=== PATIENT | male | born 1945 | race Caucasian/White ===

== ENCOUNTER 2022-05-20 03:18 | Inpatient (IN) | payer OTHER, MEDICAID ==
[~2022-05-20] VITALS: Ht 165.1 cm; Wt 76.7 kg
[2022-05-20 03:20] VITALS: BP_SYST 117
[2022-05-20 04:23] LABS: BASOPHILS % (AUTO) 0.8 % (0.0-2.0); EOSINOPHILS # (AUTO) 0.1 K/uL (0.0-0.4); EOSINOPHILS % (AUTO) 2.2 % (0.0-4.0); HEMATOCRIT 36.6 % (36-54); HEMOGLOBIN 12.2 g/dL (14.0-18.0); LYMPHOCYTES # (AUTO) 1.4 K/uL (1.0-5.5); LYMPHOCYTES % (AUTO) 32.8 % (20.5-51.5); MEAN CORPUSCULAR HEMOGLOBIN 32 pg (27-31); MEAN CORPUSCULAR HGB CONC 33 % (32-36); MEAN CORPUSCULAR VOLUME 95 fL (79.0-98.0); MONOCYTES # (AUTO) 0.4 K/uL (0.0-1.0); MONOCYTES % (AUTO) 10.6 % (1.7-9.3); NEUTROPHILS # (AUTO) 2.2 K/uL (1.8-7.7); NEUTROPHILS % (AUTO) 53.6 % (40.0-70.0); PLATELET COUNT (AUTO) 161 K/uL (130-430); RED BLOOD CELL COUNT(AUTO) 3.86 MIL/uL (4.2-6.2); RED CELL DISTRIBUTION WIDTH 13.7 % (9.0-15.0); WHITE BLOOD COUNT (AUTO) 4.1 K/uL (4.8-10.8)
[2022-05-20 04:32] LABS: ANION GAP 8 (5-15); CALCIUM 8.9 mg/dL (8.4-11.0); CHLORIDE 109 mmol/L (98-107); CREATININE 1.87 mg/dL (0.55-1.30); GLUCOSE 144 mg/dL (70-99); UREA NITROGEN, BLOOD 28 mg/dL (8-21)
[2022-05-20 04:40] LABS: ALANINE AMINOTRANSFERASE 19 U/L (12-78); ALBUMIN 3.6 g/dL (3.4-4.8); ASPARTATE AMINOTRANSFERASE 12 U/L (10-37); LIPASE 375 U/L (73-393); TOTAL BILIRUBIN 0.4 mg/dL (0.0-1.0)
[2022-05-20] MEDS ORDERED: CLOP75TA32 PO (08:42)
[2022-05-20] MEDS ORDERED: DAPA10TA PO (08:42)
[2022-05-20] MEDS ORDERED: DONE10TA44 PO (08:42)
[2022-05-20] MEDS ORDERED: ASPI-1393 PO (08:42)
[2022-05-20] MEDS ORDERED: SODI650T PO (08:42)
[2022-05-20] MEDS ORDERED: LINA145C PO (08:42)
[2022-05-20] MEDS ORDERED: DULO30CA52 PO (08:42)
[2022-05-20] MEDS ORDERED: FERR325T30 PO (08:42)
[2022-05-20] MEDS ORDERED: IBUP-1970 PO (08:42)
[2022-05-20] MEDS ORDERED: TIMO5DRO15 (08:42)
[2022-05-20] MEDS ORDERED: GLIM4TAB37 PO (08:42)
[2022-05-20] MEDS ORDERED: METO-544 PO (08:42)
[2022-05-20] MEDS ORDERED: SUCR1TAB2 PO (08:42)
[2022-05-20] MEDS ORDERED: ASC500 PO (08:42)
[2022-05-20] MEDS ORDERED: SITA100T11 PO (08:42)
[2022-05-20] MEDS ORDERED: INSU100V9 SUBCUT (08:42)
[2022-05-20] MEDS ORDERED: LOSA50TA28 PO (08:42)
[2022-05-20] MEDS ORDERED: ATOR20TA64 PO (08:42)
[2022-05-20] MEDS ORDERED: LATA2.5D14 EACH EYE (08:42)
[2022-05-20] MEDS ORDERED: DULA1.5P SUBCUT (08:42)
[2022-05-20] MEDS ORDERED: PANT40TA45 PO (08:42)
[2022-05-20] MEDS ORDERED: TAMS0.4C96 PO (08:42)
[2022-05-20] MEDS ORDERED: LOSARTAN POTASSIUM 50 MG TABLET (COZAAR) PO ONE (11:00)
[2022-05-20] MEDS ORDERED: METOPROLOL SUCCINATE 50 MG TAB.SR.24H (TOPROL XL) PO ONE (11:15)
[2022-05-20] MEDS ORDERED: DEXTROSE 50%-WATER 50 ML DISP.SYRIN IVP PRN (11:45)
[2022-05-20] MEDS ORDERED: D5W 1,000 ML IV PRN (11:45)
[2022-05-20] MEDS ORDERED: GLUCOSE (DEXTROSE) ORAL GEL -Adults PO PRN (11:45)
[2022-05-20 11:53] VITALS: BP_SYST 131
[2022-05-20 11:55] VITALS: BP_SYST 138
[2022-05-20] MEDS ORDERED: DULoxetine HCL 30 MG CAPSULE.DR (CYMBALTA) PO ONE (12:00)
[2022-05-20] MEDS ORDERED: ATORVASTATIN 20 MG TABLET PO ONE (12:00)
[2022-05-20] MEDS ORDERED: PANTOPRAZOLE SODIUM 40 MG TAB PO ONE (12:00)
[2022-05-20] MEDS ORDERED: CLOPIDOGREL BISULFATE 75 MG TABLET PO ONE (12:00)
[2022-05-20] MEDS ORDERED: ASPIRIN 81 MG TABLET(ECOTRIN) PO ONE (12:00)
[2022-05-20] MEDS: SODIUM BICARBONATE 650 MG TABLET PO SCH ×2 (13:28→22:02)
[2022-05-20] MEDS: SUCRALFATE 1 GM TABLET PO SCH ×2 (15:35→22:01)
[2022-05-20 19:00] VITALS: BP_SYST 132
[2022-05-20 20:00] VITALS: BP_SYST 132
[2022-05-20] MEDS: DONEPEZIL HCL 5 MG TABLET (ARICEPT) PO SCH (22:01)
[2022-05-20] MEDS: TAMSULOSIN HCL 0.4 MG CAP PO SCH (22:02)
[2022-05-20] MEDS: DULoxetine HCL 30 MG CAPSULE.DR (CYMBALTA) PO SCH (22:02)
[2022-05-20] MEDS: INSULIN LISPRO SLIDING SCALE 100 UNITS/ML, 3 ML VIAL (humaLOG) SUBCUT PRN (22:05)
[2022-05-21] VITALS: BP_SYST 126
[2022-05-21 03:31] LABS: BASOPHILS % (AUTO) 0.7 % (0.0-2.0); EOSINOPHILS # (AUTO) 0.1 K/uL (0.0-0.4); EOSINOPHILS % (AUTO) 1.1 % (0.0-4.0); HEMATOCRIT 34.5 % (36-54); HEMOGLOBIN 11.8 g/dL (14.0-18.0); LYMPHOCYTES # (AUTO) 1.3 K/uL (1.0-5.5); LYMPHOCYTES % (AUTO) 22.4 % (20.5-51.5); MEAN CORPUSCULAR HEMOGLOBIN 32 pg (27-31); MEAN CORPUSCULAR HGB CONC 34 % (32-36); MEAN CORPUSCULAR VOLUME 93 fL (79.0-98.0); MONOCYTES # (AUTO) 0.5 K/uL (0.0-1.0); MONOCYTES % (AUTO) 8.3 % (1.7-9.3); NEUTROPHILS # (AUTO) 3.9 K/uL (1.8-7.7); NEUTROPHILS % (AUTO) 67.5 % (40.0-70.0); PLATELET COUNT (AUTO) 152 K/uL (130-430); RED BLOOD CELL COUNT(AUTO) 3.69 MIL/uL (4.2-6.2); RED CELL DISTRIBUTION WIDTH 13.7 % (9.0-15.0); WHITE BLOOD COUNT (AUTO) 5.8 K/uL (4.8-10.8)
[2022-05-21 03:35] LABS: ANION GAP 9 (5-15); CALCIUM 8.7 mg/dL (8.4-11.0); CHLORIDE 111 mmol/L (98-107); CREATININE 1.63 mg/dL (0.55-1.30); GLUCOSE 117 mg/dL (70-99); UREA NITROGEN, BLOOD 30 mg/dL (8-21)
[2022-05-21 03:44] LABS: ALANINE AMINOTRANSFERASE 18 U/L (12-78); ALBUMIN 3.3 g/dL (3.4-4.8); ASPARTATE AMINOTRANSFERASE 17 U/L (10-37); TOTAL BILIRUBIN 0.7 mg/dL (0.0-1.0)
[2022-05-21 08:17] VITALS: BP_SYST 106
[2022-05-21] MEDS: SODIUM BICARBONATE 650 MG TABLET PO SCH ×3 (09:18→20:59)
[2022-05-21] MEDS: METOPROLOL SUCCINATE 50 MG TAB.SR.24H (TOPROL XL) PO SCH (09:18)
[2022-05-21] MEDS: SUCRALFATE 1 GM TABLET PO SCH ×3 (09:19→20:59)
[2022-05-21] MEDS: ASPIRIN 81 MG TABLET(ECOTRIN) PO SCH (09:19)
[2022-05-21] MEDS: DULoxetine HCL 30 MG CAPSULE.DR (CYMBALTA) PO SCH ×2 (09:19→20:59)
[2022-05-21] MEDS: LOSARTAN POTASSIUM 50 MG TABLET (COZAAR) PO SCH (09:19)
[2022-05-21] MEDS: ATORVASTATIN 20 MG TABLET PO SCH (09:19)
[2022-05-21] MEDS: CLOPIDOGREL BISULFATE 75 MG TABLET PO SCH (09:19)
[2022-05-21] MEDS: LINACLOTIDE 145 MCG PO SCH (09:20)
[2022-05-21] MEDS: TIMOLOL MALEATE 0.5% OPHTHALMIC DROPS 5 ML BOTH EYES SCH (09:20)
[2022-05-21] MEDS: PANTOPRAZOLE SODIUM 40 MG TAB PO SCH (09:25)
[2022-05-21 11:34] VITALS: BP_SYST 104
[2022-05-21] MEDS ORDERED: BISACODYL 5 MG TABLET.DR (DULCOLAX) PO ONE (12:00)
[2022-05-21] MEDS ORDERED: GOLYTELY / COLYTE SOLUTION 4 LITERS PO ONE (13:00)
[2022-05-21] MEDS: INSULIN LISPRO SLIDING SCALE 100 UNITS/ML, 3 ML VIAL (humaLOG) SUBCUT PRN ×2 (13:38→20:58)
[2022-05-21 15:37] VITALS: BP_SYST 133
[2022-05-21 20:00] VITALS: BP_SYST 154
[2022-05-21] MEDS ORDERED: ACETAMINOPHEN 325 MG TABLET PO PRN (20:30)
[2022-05-21] MEDS ORDERED: TEMAZEPAM 7.5 MG CAPSULE PO PRN (20:30)
[2022-05-21] MEDS ORDERED: LATANOPROST 2.5 ML DROPS (XALATAN) EACH EYE SCH (21:00)
[2022-05-21] MEDS: DONEPEZIL HCL 5 MG TABLET (ARICEPT) PO SCH (21:00)
[2022-05-21] MEDS: TAMSULOSIN HCL 0.4 MG CAP PO SCH (21:00)
[2022-05-22 01:25] VITALS: BP_SYST 126
[2022-05-22 07:17] LABS: ANION GAP 9 (5-15); CALCIUM 8.8 mg/dL (8.4-11.0); CHLORIDE 105 mmol/L (98-107); CREATININE 1.42 mg/dL (0.55-1.30); GLUCOSE 136 mg/dL (70-99); UREA NITROGEN, BLOOD 24 mg/dL (8-21)
[2022-05-22 07:22] LABS: PROTHROMBIN TIME 10.7 SECS (9.5-12.5)
[2022-05-22 07:27] LABS: BASOPHILS % (AUTO) 0.5 % (0.0-2.0); EOSINOPHILS % (AUTO) 0.8 % (0.0-4.0); HEMATOCRIT 37.2 % (36-54); HEMOGLOBIN 12.7 g/dL (14.0-18.0); LYMPHOCYTES # (AUTO) 1.2 K/uL (1.0-5.5); MEAN CORPUSCULAR HEMOGLOBIN 32 pg (27-31); MEAN CORPUSCULAR HGB CONC 34 % (32-36); MEAN CORPUSCULAR VOLUME 94 fL (79.0-98.0); MONOCYTES # (AUTO) 0.5 K/uL (0.0-1.0); MONOCYTES % (AUTO) 10.9 % (1.7-9.3); NEUTROPHILS # (AUTO) 2.8 K/uL (1.8-7.7); NEUTROPHILS % (AUTO) 61.8 % (40.0-70.0); PLATELET COUNT (AUTO) 165 K/uL (130-430); RED BLOOD CELL COUNT(AUTO) 3.96 MIL/uL (4.2-6.2); RED CELL DISTRIBUTION WIDTH 13.5 % (9.0-15.0); WHITE BLOOD COUNT (AUTO) 4.6 K/uL (4.8-10.8)
[2022-05-22 08:00] VITALS: BP_SYST 143
[2022-05-22] MEDS: SODIUM BICARBONATE 650 MG TABLET PO SCH ×2 (09:00→16:35)
[2022-05-22] MEDS: LINACLOTIDE 145 MCG PO SCH (09:00)
[2022-05-22] MEDS: METOPROLOL SUCCINATE 50 MG TAB.SR.24H (TOPROL XL) PO SCH (09:00)
[2022-05-22] MEDS: LOSARTAN POTASSIUM 50 MG TABLET (COZAAR) PO SCH (09:00)
[2022-05-22] MEDS: SUCRALFATE 1 GM TABLET PO SCH ×2 (09:00→16:35)
[2022-05-22] MEDS: CLOPIDOGREL BISULFATE 75 MG TABLET PO SCH (09:00)
[2022-05-22] MEDS ORDERED: MEPERIDINE 100 MG INJ. 100 MG/ML VIAL ONE (09:52)
[2022-05-22] MEDS ORDERED: fentaNYL CITRATE/PF 100 MCG/2 ML AMP IVP ONE ×2 (09:54→09:56)
[2022-05-22] MEDS: MIDAZOLAM HCL 5 MG/5 ML VIAL ONE ×3 (09:54→10:20)
[2022-05-22] MEDS: ASPIRIN 81 MG TABLET(ECOTRIN) PO SCH (11:40)
[2022-05-22] MEDS: TIMOLOL MALEATE 0.5% OPHTHALMIC DROPS 5 ML BOTH EYES SCH (11:40)
[2022-05-22] MEDS: DULoxetine HCL 30 MG CAPSULE.DR (CYMBALTA) PO SCH (11:40)
[2022-05-22] MEDS: ATORVASTATIN 20 MG TABLET PO SCH (11:40)
[2022-05-22] MEDS: PANTOPRAZOLE SODIUM 40 MG TAB PO SCH (11:40)
[2022-05-22 12:00] VITALS: BP_SYST 115
[2022-05-22 16:00] VITALS: BP_SYST 134
[2022-05-22 17:42] VITALS: BP_SYST 134
[2022-05-24 20:13] VITALS: BP_SYST 125
== END 2022-05-22 19:00 | disposition home or self-care (01) | DRG 391 ==
LOC: SED 03:18 → STU 06:15
PROVIDERS: ADMIT Internal Medicine; ATTEND Internal Medicine
PROC: 0DBK8ZZ Excision of Ascending Colon, Via Natural or Artificial Opening Endoscopic (ICD-10-PCS; 2022-05-22)
PROC: 0DBL8ZX Excision of Transverse Colon, Via Natural or Artificial Opening Endoscopic, Diagnostic (ICD-10-PCS; 2022-05-22)
PROC: 0DB98ZX Excision of Duodenum, Via Natural or Artificial Opening Endoscopic, Diagnostic (ICD-10-PCS; principal; 2022-05-22 11:00)
PROC: 0DB78ZX Excision of Stomach, Pylorus, Via Natural or Artificial Opening Endoscopic, Diagnostic (ICD-10-PCS; 2022-05-22 11:00)
PROC: 0DBH8ZZ Excision of Cecum, Via Natural or Artificial Opening Endoscopic (ICD-10-PCS; 2022-05-22 11:00)
DX: K21.9 Gastro-esophageal reflux disease without esophagitis (principal); N17.0 Acute kidney failure with tubular necrosis; K29.70 Gastritis, unspecified, without bleeding; K44.9 Diaphragmatic hernia without obstruction or gangrene; K63.5 Polyp of colon; K64.8 Other hemorrhoids; E78.5 Hyperlipidemia, unspecified; E11.51 Type 2 diabetes mellitus with diabetic peripheral angiopathy without gangrene; I25.10 Atherosclerotic heart disease of native coronary artery without angina pectoris; M19.90 Unspecified osteoarthritis, unspecified site; F03.A0 Unspecified dementia, mild, without behavioral disturbance, psychotic disturbance, mood disturbance, and anxiety; E11.42 Type 2 diabetes mellitus with diabetic polyneuropathy; D64.9 Anemia, unspecified; I12.9 Hypertensive chronic kidney disease with stage 1 through stage 4 chronic kidney disease, or unspecified chronic kidney disease; E11.22 Type 2 diabetes mellitus with diabetic chronic kidney disease; N18.32 Chronic kidney disease, stage 3b; Z20.822 Contact with and (suspected) exposure to COVID-19; F32.A Depression, unspecified; Z79.1 Long term (current) use of non-steroidal anti-inflammatories (NSAID); Z79.4 Long term (current) use of insulin; Z79.899 Other long term (current) drug therapy
CPT/HCPCS: 36415; 43239; 45380; 45385; 71045; 76770; 80048; 80053; 82962; 83036; 83690; 83880; 84484; 85025; 85610-TC; 85730-TC; 87081; 88305; 88312; 88313; 93005; 93306; 99285; G0378; J2175; J2250; J3010

== ENCOUNTER 2022-07-30 09:46 | Emergency (ER) | payer OTHER, MEDICAID ==
[~2022-07-30] VITALS: Ht 157.5 cm; Wt 81.6 kg
[~2022-07-30 09:46] MED LIST: ASC500 PO; ASPI-1393 PO; ATOR20TA64 PO; CLOP75TA32 PO; DAPA10TA PO; DONE10TA44 PO; DULA1.5P SUBCUT; DULO30CA52 PO; FERR325T30 PO; GLIM4TAB37 PO; IBUP-1970 PO; INSU100V9 SUBCUT; LATA2.5D14 EACH EYE; LINA145C PO; LOSA50TA28 PO; METO-544 PO; PANT40TA45 PO; SITA100T11 PO; SODI650T PO; SUCR1TAB2 PO; TAMS0.4C96 PO; TIMO5DRO15
[2022-07-30 09:55] VITALS: BP_SYST 93
--- NOTE | 2022-07-30 10:00 | NUR ---
Patient triaged and placed in waiting room. VSS and patient appears in no acute distress at this time. Accompanied by , awaiting available bed, and MD notified of need for MSE.
--- NOTE | 2022-07-30 14:00 | NUR ---
Dr Ortiz evaluating patient in the triage room
[2022-07-30 15:52] LABS: EOSINOPHILS # (AUTO) 0.1 K/uL (0.0-0.4); EOSINOPHILS % (AUTO) 1.9 % (0.0-4.0); HEMATOCRIT 33.9 % (36-54); HEMOGLOBIN 11.2 g/dL (14.0-18.0); LYMPHOCYTES # (AUTO) 1.6 K/uL (1.0-5.5); LYMPHOCYTES % (AUTO) 30.1 % (20.5-51.5); MEAN CORPUSCULAR HEMOGLOBIN 32 pg (27-31); MEAN CORPUSCULAR HGB CONC 33 % (32-36); MEAN CORPUSCULAR VOLUME 96 fL (79.0-98.0); MONOCYTES # (AUTO) 0.4 K/uL (0.0-1.0); MONOCYTES % (AUTO) 8.1 % (1.7-9.3); NEUTROPHILS % (AUTO) 58.9 % (40.0-70.0); PLATELET COUNT (AUTO) 213 K/uL (130-430); RED BLOOD CELL COUNT(AUTO) 3.54 MIL/uL (4.2-6.2); RED CELL DISTRIBUTION WIDTH 13.7 % (9.0-15.0); WHITE BLOOD COUNT (AUTO) 5.1 K/uL (4.8-10.8)
[2022-07-30 16:13] LABS: ANION GAP 5 (5-15); CALCIUM 9.1 mg/dL (8.4-11.0); CHLORIDE 103 mmol/L (98-107); CREATININE 1.97 mg/dL (0.55-1.30); GLUCOSE 258 mg/dL (70-99); UREA NITROGEN, BLOOD 30 mg/dL (8-21)
[2022-07-30 16:16] LABS: ALANINE AMINOTRANSFERASE 23 U/L (12-78); ALBUMIN 3.4 g/dL (3.4-4.8); ASPARTATE AMINOTRANSFERASE 16 U/L (10-37); C-REACTIVE PROTEIN QUANT 0.6 mg/dL (0-0.5); TOTAL BILIRUBIN 0.6 mg/dL (0.0-1.0)
[2022-07-30] MEDS ORDERED: CLIN-142 PO (18:46)
[2022-07-30 19:10] VITALS: BP_SYST 135
--- NOTE | 2022-07-30 19:30 | NUR ---
Patient given written and verbal discharge instructions and verbalizes understanding. ER MD discussed with patient the results and treatment provided. Patient in stable condition. ID arm band removed. . Patient educated on pain management and to follow up with PMD. Pain Scale 2/10. Opportunity for questions provided and answered. Medication side effect fact sheet provided.
[2022-07-31] MEDS ORDERED: CEPH-548 PO (09:49)
== END 2022-07-30 19:10 | disposition home or self-care (01) ==
LOC: SED 09:46
DX: E11.621 Type 2 diabetes mellitus with foot ulcer (principal); E78.5 Hyperlipidemia, unspecified; E11.9 Type 2 diabetes mellitus without complications; I10 Essential (primary) hypertension; Z79.899 Other long term (current) drug therapy
CPT/HCPCS: 36415; 80053; 83605; 85025; 86140; 99284

== ENCOUNTER 2022-07-31 09:31 | Emergency (ER) | payer OTHER, MEDICAID ==
[~2022-07-31] VITALS: Ht 162.6 cm; Wt 81.6 kg
[~2022-07-31 09:31] MED LIST changes: +CLIN-142 PO
[2022-07-31 09:35] VITALS: BP_SYST 125
--- NOTE | 2022-07-31 09:46 | NUR ---
PT BIB AWAKE AND ALERT AOX4. PT HERE TO GET LAB REPORTS FROM HIS VISIT TO THE ER YESTERDAY, CONCERNING HIS DIABETIC R FOOT INFECTION. PT DENIES PAIN. NO VISBILE BLOOD OR DRAINAGE. VSS
--- NOTE | 2022-07-31 09:48 | NUR ---
MD DR LARSON AT BEDSIDE
[2022-07-31] MEDS ORDERED: CEPH-548 PO (09:49)
[2022-07-31 12:10] VITALS: BP_SYST 125
--- NOTE | 2022-07-31 12:11 | NUR ---
Patient given written and verbal discharge instructions and verbalizes understanding. ER MD DR LARSON discussed with patient the results and treatment provided. Patient in stable condition. ID arm band removed. Rx of CEPHALEXIN given. Patient educated on pain management and to follow up with PMD. Pain Scale 0/10. Opportunity for questions provided and answered. Medication side effect fact sheet provided.
== END 2022-07-31 12:11 | disposition home or self-care (01) ==
LOC: SED 09:31
DX: E11.621 Type 2 diabetes mellitus with foot ulcer (principal); E78.5 Hyperlipidemia, unspecified; I10 Essential (primary) hypertension; Z79.4 Long term (current) use of insulin; Z79.899 Other long term (current) drug therapy
CPT/HCPCS: 99283

== ENCOUNTER 2022-11-08 02:52 | Emergency (ER) | payer OTHER, MEDICAID ==
[~2022-11-08] VITALS: Ht 157.5 cm; Wt 82.6 kg
[2022-11-08 02:52] VITALS: BP_SYST 120
[~2022-11-08 02:52] MED LIST changes: +CEPH-548 PO
[2022-11-08] MEDS ORDERED: LIDOCAINE 2%, 20 ML MDV INJ ONE (03:15)
[2022-11-08] MEDS ORDERED: SULFAMETHOXAZOLE/TRIMETHOPR DS 1 TABLET PO ONE (03:15)
[2022-11-08] MEDS ORDERED: cephALEXin 500 MG CAPSULE PO ONE (03:15)
[2022-11-08] MEDS ORDERED: CEPH-548 PO (03:34)
[2022-11-08] MEDS ORDERED: SULF1TAB48 PO (03:34)
[2022-11-08 03:50] VITALS: BP_SYST 120
== END 2022-11-08 03:50 | disposition home or self-care (01) ==
LOC: SED 02:52
DX: L02.511 Cutaneous abscess of right hand (principal); E11.9 Type 2 diabetes mellitus without complications; I10 Essential (primary) hypertension; E78.5 Hyperlipidemia, unspecified; Z79.899 Other long term (current) drug therapy
CPT/HCPCS: 99283

== ENCOUNTER 2023-04-01 15:20 | Inpatient (IN) | payer OTHER, MEDICAID ==
[~2023-04-01] VITALS: Ht 157.5 cm; Wt 82.3 kg
[~2023-04-01 15:20] MED LIST changes: +SULF1TAB48 PO; -TIMO5DRO15; +TIMO5DRO18
[2023-04-01 15:41] VITALS: BP_SYST 123; PULSE 88; RESP 18; TEMP 97.8; O2SAT 98
[2023-04-01 17:04] LABS: BASOPHILS % (AUTO) 0.4 % (0.0-2.0); EOSINOPHILS % (AUTO) 0.2 % (0.0-4.0); HEMATOCRIT 37.5 % (36-54); HEMOGLOBIN 11.9 g/dL (14.0-18.0); LYMPHOCYTES # (AUTO) 0.9 K/uL (1.0-5.5); LYMPHOCYTES % (AUTO) 9.6 % (20.5-51.5); MEAN CORPUSCULAR HEMOGLOBIN 30 pg (27-31); MEAN CORPUSCULAR HGB CONC 32 % (32-36); MEAN CORPUSCULAR VOLUME 95 fL (79.0-98.0); MONOCYTES # (AUTO) 0.7 K/uL (0.0-1.0); MONOCYTES % (AUTO) 7.3 % (1.7-9.3); NEUTROPHILS # (AUTO) 7.8 K/uL (1.8-7.7); NEUTROPHILS % (AUTO) 82.5 % (40.0-70.0); PLATELET COUNT (AUTO) 179 K/uL (130-430); RED BLOOD CELL COUNT(AUTO) 3.96 MIL/uL (4.2-6.2); RED CELL DISTRIBUTION WIDTH 14.2 % (9.0-15.0); WHITE BLOOD COUNT (AUTO) 9.5 K/uL (4.8-10.8)
[2023-04-01 17:52] LABS: ANION GAP 6 (5-15); CARBON DIOXIDE 23 mmol/L (23-29); CHLORIDE 99 mmol/L (98-107); POTASSIUM 4.2 mmol/L (3.5-5.1); SODIUM SERUM 128 mmol/L (136-145)
[2023-04-01 17:53] LABS: ALANINE AMINOTRANSFERASE 18 U/L (12-78); ALBUMIN 3.4 g/dL (3.4-4.8); ASPARTATE AMINOTRANSFERASE 13 U/L (10-37); CALCIUM 9.2 mg/dL (8.4-11.0); CREATININE 1.81 mg/dL (0.55-1.30); GLUCOSE 309 mg/dL (74-106); TOTAL BILIRUBIN 0.6 mg/dL (0.0-1.0); TOTAL PROTEIN, SERUM 7.9 g/dL (6.4-8.3)
[2023-04-01 17:58] LABS: UREA NITROGEN, BLOOD 32 mg/dL (8-21)
[2023-04-01] MEDS ORDERED: PIPERACILLIN/TAZO 3.375 GM in NS 50 ML IV ONE (18:30)
[2023-04-01] MEDS ORDERED: VANCOMYCIN HCL 1,000 MG in NS 250 ML IV ONE (19:00)
[2023-04-01] MEDS ORDERED: VANCOMYCIN HCL 1000 MG/VIAL IV ONE (19:55)
[2023-04-01] MEDS ORDERED: PIPERACILLIN/TAZOBACTAM 3.375 GM/VIAL (ZOSYN) IV ONE (19:56)
[2023-04-02 01:10] VITALS: BP_SYST 128; PULSE 98; RESP 17; TEMP 97.7; O2SAT 96
[2023-04-02 05:41] LABS: BASOPHILS % (AUTO) 0.3 % (0.0-2.0); HEMATOCRIT 35.7 % (36-54); HEMOGLOBIN 11.4 g/dL (14.0-18.0); LYMPHOCYTES # (AUTO) 1.4 K/uL (1.0-5.5); LYMPHOCYTES % (AUTO) 19.2 % (20.5-51.5); MEAN CORPUSCULAR HEMOGLOBIN 30 pg (27-31); MEAN CORPUSCULAR HGB CONC 32 % (32-36); MEAN CORPUSCULAR VOLUME 93 fL (79.0-98.0); MONOCYTES # (AUTO) 0.7 K/uL (0.0-1.0); MONOCYTES % (AUTO) 9.5 % (1.7-9.3); NEUTROPHILS # (AUTO) 5.2 K/uL (1.8-7.7); PLATELET COUNT (AUTO) 175 K/uL (130-430); RED BLOOD CELL COUNT(AUTO) 3.82 MIL/uL (4.2-6.2); RED CELL DISTRIBUTION WIDTH 13.8 % (9.0-15.0); WHITE BLOOD COUNT (AUTO) 7.3 K/uL (4.8-10.8)
[2023-04-02 06:27] LABS: ALANINE AMINOTRANSFERASE 16 U/L (12-78); ANION GAP 12 (5-15); ASPARTATE AMINOTRANSFERASE 12 U/L (10-37); CALCIUM 9.2 mg/dL (8.4-11.0); CARBON DIOXIDE 21 mmol/L (23-29); CHLORIDE 106 mmol/L (98-107); CREATININE 1.59 mg/dL (0.55-1.30); GLUCOSE 85 mg/dL (74-106); POTASSIUM 3.4 mmol/L (3.5-5.1); SODIUM SERUM 139 mmol/L (136-145); TOTAL BILIRUBIN 0.8 mg/dL (0.0-1.0); TOTAL PROTEIN, SERUM 7.3 g/dL (6.4-8.3); UREA NITROGEN, BLOOD 23 mg/dL (8-21)
[2023-04-02] MEDS ORDERED: fentaNYL CITRATE/PF 100 MCG/2 ML AMP ONE (07:39)
[2023-04-02] MEDS ORDERED: MIDAZOLAM HCL 2 MG/2 ML VIAL (VERSED) ONE (07:40)
[2023-04-02 08:00] VITALS: BP_SYST 108; PULSE 103; RESP 19; TEMP 97.9; O2SAT 96; O2SAT 97
[2023-04-02] MEDS ORDERED: SULFAMETHOXAZOLE/TRIMETHOPR DS 1 TABLET PO SCH (09:00)
[2023-04-02] MEDS ORDERED: ASPIRIN 81 MG TABLET(ECOTRIN) PO ONE (10:15)
[2023-04-02] MEDS ORDERED: ASCORBIC ACID 500 MG TABLET PO ONE (10:15)
[2023-04-02] MEDS ORDERED: CLOPIDOGREL BISULFATE 75 MG TABLET PO ONE (10:15)
[2023-04-02] MEDS ORDERED: ATORVASTATIN 20 MG TABLET PO ONE (10:30)
[2023-04-02] MEDS ORDERED: DULoxetine HCL 30 MG CAPSULE.DR (CYMBALTA) PO ONE (10:30)
[2023-04-02] MEDS ORDERED: LOSARTAN POTASSIUM 50 MG TABLET (COZAAR) PO ONE (10:30)
[2023-04-02] MEDS ORDERED: FERROUS SULFATE 325 MG TABLET.DR PO ONE (10:30)
[2023-04-02] MEDS ORDERED: PANTOPRAZOLE SODIUM 40 MG TAB PO ONE (10:30)
[2023-04-02] MEDS ORDERED: SODIUM BICARBONATE 650 MG TABLET PO ONE (10:30)
[2023-04-02] MEDS ORDERED: SUCRALFATE 1 GM TABLET PO ONE (10:45)
[2023-04-02] MEDS ORDERED: TAMSULOSIN HCL 0.4 MG CAP PO ONE (11:00)
[2023-04-02] MEDS ORDERED: *CUBICIN 6 MG/KG Q48H/PHARMACY XX PRN (11:00)
[2023-04-02 11:46] VITALS: BP_SYST 94; PULSE 60; RESP 15; TEMP 98.6; O2SAT 98
[2023-04-02 12:00] VITALS: BP_SYST 117; PULSE 102; RESP 18; TEMP 97.8; O2SAT 97
[2023-04-02] MEDS ORDERED: TIMOLOL MALEATE 0.5% OPHTHALMIC DROPS 5 ML BOTH EYES ONE (12:00)
[2023-04-02] MEDS ORDERED: LATANOPROST 2.5 ML DROPS (XALATAN) EACH EYE ONE (12:00)
[2023-04-02] MEDS: CEFEPIME 2 GM in D5W 100 ML IV SCH (13:25)
[2023-04-02] MEDS: DAPTOmycin 500 MG in NS 50 ML IV SCH (13:55)
[2023-04-02] MEDS: SODIUM BICARBONATE 650 MG TABLET PO SCH ×2 (16:19→21:25)
[2023-04-02] MEDS: SUCRALFATE 1 GM TABLET PO SCH ×2 (16:19→21:26)
[2023-04-02] MEDS: traMADol HCL HCL 50 MG TABLET (ULTRAM) PO PRN ×2 (16:20→21:30)
[2023-04-02 16:41] VITALS: BP_SYST 127; PULSE 98; RESP 16; TEMP 98.5; O2SAT 98
[2023-04-02 20:00] VITALS: BP_SYST 105; PULSE 89; RESP 18; TEMP 99.2; O2SAT 95
[2023-04-02] MEDS: LATANOPROST 2.5 ML DROPS (XALATAN) EACH EYE SCH (21:00)
[2023-04-02] MEDS: DONEPEZIL HCL 5 MG TABLET (ARICEPT) PO SCH (21:25)
[2023-04-02] MEDS: TIMOLOL MALEATE 0.5% OPHTHALMIC DROPS 5 ML BOTH EYES SCH (21:25)
[2023-04-02] MEDS: DULoxetine HCL 30 MG CAPSULE.DR (CYMBALTA) PO SCH (21:25)
[2023-04-03 00:49] VITALS: BP_SYST 137; PULSE 98; RESP 16; TEMP 99; O2SAT 97
[2023-04-03 08:31] VITALS: O2SAT 94
[2023-04-03] MEDS: ASPIRIN 81 MG TABLET(ECOTRIN) PO SCH (10:11)
[2023-04-03] MEDS: FERROUS SULFATE 325 MG TABLET.DR PO SCH (10:11)
[2023-04-03] MEDS: TIMOLOL MALEATE 0.5% OPHTHALMIC DROPS 5 ML BOTH EYES SCH ×2 (10:11→20:53)
[2023-04-03] MEDS: CLOPIDOGREL BISULFATE 75 MG TABLET PO SCH (10:11)
[2023-04-03] MEDS: LOSARTAN POTASSIUM 50 MG TABLET (COZAAR) PO SCH (10:14)
[2023-04-03] MEDS: ASCORBIC ACID 500 MG TABLET PO SCH (10:14)
[2023-04-03] MEDS: PANTOPRAZOLE SODIUM 40 MG TAB PO SCH (10:15)
[2023-04-03] MEDS: SODIUM BICARBONATE 650 MG TABLET PO SCH ×3 (10:15→20:53)
[2023-04-03] MEDS: SUCRALFATE 1 GM TABLET PO SCH ×3 (10:15→20:53)
[2023-04-03] MEDS: TAMSULOSIN HCL 0.4 MG CAP PO SCH (10:15)
[2023-04-03] MEDS: DULoxetine HCL 30 MG CAPSULE.DR (CYMBALTA) PO SCH ×2 (10:15→20:53)
[2023-04-03] MEDS: ATORVASTATIN 20 MG TABLET PO SCH (10:15)
[2023-04-03] MEDS: traMADol HCL HCL 50 MG TABLET (ULTRAM) PO PRN ×2 (10:22→19:44)
[2023-04-03] MEDS: CEFEPIME 2 GM in D5W 100 ML IV SCH (11:05)
[2023-04-03 12:00] VITALS: BP_SYST 112; PULSE 97; RESP 18; TEMP 97.8; O2SAT 95
[2023-04-03 16:00] VITALS: BP_SYST 107; PULSE 99; RESP 18; TEMP 97.1; O2SAT 91
[2023-04-03] MEDS: DAPTOmycin 500 MG in NS 50 ML IV SCH (16:50)
[2023-04-03 20:00] VITALS: BP_SYST 105; PULSE 110; RESP 18; TEMP 97.4; O2SAT 92
[2023-04-03] MEDS: LATANOPROST 2.5 ML DROPS (XALATAN) EACH EYE SCH (20:54)
[2023-04-03] MEDS: DONEPEZIL HCL 5 MG TABLET (ARICEPT) PO SCH (20:54)
[2023-04-03 23:10] VITALS: BP_SYST 110; PULSE 99; RESP 18; TEMP 98.3; O2SAT 95
[2023-04-04] MEDS: traMADol HCL HCL 50 MG TABLET (ULTRAM) PO PRN ×2 (04:06→21:29)
[2023-04-04 04:22] LABS: BASOPHILS % (AUTO) 0.4 % (0.0-2.0); EOSINOPHILS # (AUTO) 0.1 K/uL (0.0-0.4); EOSINOPHILS % (AUTO) 1.6 % (0.0-4.0); HEMATOCRIT 31.4 % (36-54); HEMOGLOBIN 10.1 g/dL (14.0-18.0); LYMPHOCYTES # (AUTO) 1.3 K/uL (1.0-5.5); LYMPHOCYTES % (AUTO) 17.7 % (20.5-51.5); MEAN CORPUSCULAR HEMOGLOBIN 30 pg (27-31); MEAN CORPUSCULAR HGB CONC 32 % (32-36); MEAN CORPUSCULAR VOLUME 93 fL (79.0-98.0); MONOCYTES # (AUTO) 0.6 K/uL (0.0-1.0); MONOCYTES % (AUTO) 8.5 % (1.7-9.3); NEUTROPHILS # (AUTO) 5.2 K/uL (1.8-7.7); NEUTROPHILS % (AUTO) 71.8 % (40.0-70.0); PLATELET COUNT (AUTO) 159 K/uL (130-430); RED BLOOD CELL COUNT(AUTO) 3.36 MIL/uL (4.2-6.2); RED CELL DISTRIBUTION WIDTH 13.6 % (9.0-15.0); WHITE BLOOD COUNT (AUTO) 7.2 K/uL (4.8-10.8)
[2023-04-04 04:29] LABS: ANION GAP 9 (5-15); CALCIUM 8.7 mg/dL (8.4-11.0); CARBON DIOXIDE 25 mmol/L (23-29); CHLORIDE 101 mmol/L (98-107); CREATININE 1.67 mg/dL (0.55-1.30); GLUCOSE 151 mg/dL (74-106); POTASSIUM 3.7 mmol/L (3.5-5.1); SODIUM SERUM 135 mmol/L (136-145); UREA NITROGEN, BLOOD 25 mg/dL (8-21)
[2023-04-04 08:30] VITALS: O2SAT 98
[2023-04-04] MEDS: PANTOPRAZOLE SODIUM 40 MG TAB PO SCH (09:17)
[2023-04-04] MEDS: TAMSULOSIN HCL 0.4 MG CAP PO SCH (09:17)
[2023-04-04] MEDS: FERROUS SULFATE 325 MG TABLET.DR PO SCH (09:17)
[2023-04-04] MEDS: CLOPIDOGREL BISULFATE 75 MG TABLET PO SCH (09:17)
[2023-04-04] MEDS: ATORVASTATIN 20 MG TABLET PO SCH (09:17)
[2023-04-04] MEDS: TIMOLOL MALEATE 0.5% OPHTHALMIC DROPS 5 ML BOTH EYES SCH ×2 (09:17→21:29)
[2023-04-04] MEDS: ASCORBIC ACID 500 MG TABLET PO SCH (09:17)
[2023-04-04] MEDS: SODIUM BICARBONATE 650 MG TABLET PO SCH ×3 (09:17→21:29)
[2023-04-04] MEDS: SUCRALFATE 1 GM TABLET PO SCH ×3 (09:17→21:29)
[2023-04-04] MEDS: ASPIRIN 81 MG TABLET(ECOTRIN) PO SCH (09:21)
[2023-04-04] MEDS: DULoxetine HCL 30 MG CAPSULE.DR (CYMBALTA) PO SCH ×2 (09:21→21:29)
[2023-04-04] MEDS: LOSARTAN POTASSIUM 50 MG TABLET (COZAAR) PO SCH (09:21)
[2023-04-04 12:00] VITALS: BP_SYST 117; PULSE 85; RESP 16; TEMP 98.4; O2SAT 94
[2023-04-04] MEDS: CEFEPIME 2 GM in D5W 100 ML IV SCH (12:17)
[2023-04-04] MEDS: DAPTOmycin 500 MG in NS 50 ML IV SCH (13:53)
[2023-04-04 16:00] VITALS: BP_SYST 121; PULSE 68; RESP 16; TEMP 98.2; O2SAT 94
[2023-04-04 20:00] VITALS: BP_SYST 107; PULSE 93; RESP 16; TEMP 99.2; O2SAT 95; O2SAT 98
[2023-04-04] MEDS: LATANOPROST 2.5 ML DROPS (XALATAN) EACH EYE SCH (21:00)
[2023-04-04] MEDS: DONEPEZIL HCL 5 MG TABLET (ARICEPT) PO SCH (21:29)
[2023-04-05] VITALS: BP_SYST 126; PULSE 87; RESP 16; TEMP 98.8; O2SAT 93
[2023-04-05] MEDS: traMADol HCL HCL 50 MG TABLET (ULTRAM) PO PRN ×2 (06:37→16:05)
[2023-04-05 07:00] VITALS: BP_SYST 153; PULSE 94; RESP 20; TEMP 97.9; O2SAT 95
[2023-04-05] MEDS ORDERED: DAPTOMYCIN XX (08:43)
[2023-04-05] MEDS ORDERED: DAPT500F IV (08:43)
[2023-04-05 09:00] VITALS: BP_SYST 153; PULSE 94; RESP 20; TEMP 97.9; O2SAT 95
[2023-04-05] MEDS: ATORVASTATIN 20 MG TABLET PO SCH (09:06)
[2023-04-05] MEDS: ASPIRIN 81 MG TABLET(ECOTRIN) PO SCH (09:06)
[2023-04-05] MEDS: CLOPIDOGREL BISULFATE 75 MG TABLET PO SCH (09:06)
[2023-04-05] MEDS: PANTOPRAZOLE SODIUM 40 MG TAB PO SCH (09:06)
[2023-04-05] MEDS: SUCRALFATE 1 GM TABLET PO SCH (09:06)
[2023-04-05] MEDS: FERROUS SULFATE 325 MG TABLET.DR PO SCH (09:06)
[2023-04-05] MEDS: TAMSULOSIN HCL 0.4 MG CAP PO SCH (09:07)
[2023-04-05] MEDS: ASCORBIC ACID 500 MG TABLET PO SCH (09:07)
[2023-04-05] MEDS: TIMOLOL MALEATE 0.5% OPHTHALMIC DROPS 5 ML BOTH EYES SCH (09:07)
[2023-04-05] MEDS: LOSARTAN POTASSIUM 50 MG TABLET (COZAAR) PO SCH (09:07)
[2023-04-05] MEDS: DULoxetine HCL 30 MG CAPSULE.DR (CYMBALTA) PO SCH (09:08)
[2023-04-05] MEDS ORDERED: CEFE2FRO IV (10:00)
[2023-04-05] MEDS: SODIUM BICARBONATE 650 MG TABLET PO SCH (10:20)
[2023-04-05] MEDS ORDERED: ERTAPENEM SODIUM 0.5 GM in NS 50 ML IV SCH (11:30)
[2023-04-05 15:07] VITALS: BP_SYST 113; PULSE 88; RESP 20; TEMP 97.3; O2SAT 94
== END 2023-04-05 16:10 | disposition home or self-care (01) | DRG 638 ==
LOC: SED 15:20 → SMU 18:39
PROVIDERS: ADMIT Specialist; ATTEND Specialist
PROC: 02HV33Z Insertion of Infusion Device into Superior Vena Cava, Percutaneous Approach (ICD-10-PCS; principal; 2023-04-01)
PROC: B548ZZA Ultrasonography of Superior Vena Cava, Guidance (ICD-10-PCS; 2023-04-01)
DX: E11.69 Type 2 diabetes mellitus with other specified complication (principal); E44.1 Mild protein-calorie malnutrition; M86.8X7 Other osteomyelitis, ankle and foot; E87.1 Hypo-osmolality and hyponatremia; E11.00 Type 2 diabetes mellitus with hyperosmolarity without nonketotic hyperglycemic-hyperosmolar coma (NKHHC); E11.51 Type 2 diabetes mellitus with diabetic peripheral angiopathy without gangrene; I10 Essential (primary) hypertension; E78.5 Hyperlipidemia, unspecified; Z79.899 Other long term (current) drug therapy; Z79.4 Long term (current) use of insulin; Z68.33 Body mass index [BMI] 33.0-33.9, adult
CPT/HCPCS: 36415; 80048; 80053; 82962; 85025; 85651-TC; 87040; 87081; 96365; 96367; 97116-GP; 97530-GP; 99285; J0692; J0878; J1335; J2543; J3010; J3370; J3465; J7060

== ENCOUNTER 2023-07-26 05:02 | Emergency (ER) | payer OTHER, MEDICAID ==
[~2023-07-26] VITALS: Ht 154.9 cm; Wt 82.1 kg
[~2023-07-26 05:02] MED LIST changes: +CEFE2FRO IV; -CEPH-548 PO; -CLIN-142 PO; +DAPT500F IV; +DAPTOMYCIN XX; -IBUP-1970 PO; -SULF1TAB48 PO
[2023-07-26 05:12] VITALS: BP_SYST 153; PULSE 64; RESP 20; TEMP 97.8; O2SAT 96
[2023-07-26] MEDS: MORPHINE 4 MG INJ. 4 MG/ML VIAL IVP ONE (06:59)
[2023-07-26 07:17] LABS: BASOPHILS % (AUTO) 0.5 % (0.0-2.0); EOSINOPHILS # (AUTO) 0.1 K/uL (0.0-0.4); HEMATOCRIT 38.3 % (36-54); HEMOGLOBIN 12.7 g/dL (14.0-18.0); LYMPHOCYTES # (AUTO) 1.8 K/uL (1.0-5.5); LYMPHOCYTES % (AUTO) 33.8 % (20.5-51.5); MEAN CORPUSCULAR HEMOGLOBIN 31 pg (27-31); MEAN CORPUSCULAR HGB CONC 33 % (32-36); MEAN CORPUSCULAR VOLUME 93 fL (79.0-98.0); MONOCYTES # (AUTO) 0.5 K/uL (0.0-1.0); MONOCYTES % (AUTO) 8.9 % (1.7-9.3); NEUTROPHILS # (AUTO) 2.9 K/uL (1.8-7.7); NEUTROPHILS % (AUTO) 54.8 % (40.0-70.0); PLATELET COUNT (AUTO) 192 K/uL (130-430); RED BLOOD CELL COUNT(AUTO) 4.14 MIL/uL (4.2-6.2); RED CELL DISTRIBUTION WIDTH 15.6 % (9.0-15.0); WHITE BLOOD COUNT (AUTO) 5.3 K/uL (4.8-10.8)
[2023-07-26 07:37] LABS: ANION GAP 12 (5-15); CALCIUM 9.3 mg/dL (8.4-11.0); CARBON DIOXIDE 27 mmol/L (23-29); CHLORIDE 110 mmol/L (98-107); CREATININE 1.56 mg/dL (0.55-1.30); GLUCOSE 127 mg/dL (74-106); POTASSIUM 4.7 mmol/L (3.5-5.1); PROTHROMBIN TIME 10.7 SECS (9.5-12.5); SODIUM SERUM 149 mmol/L (136-145); UREA NITROGEN, BLOOD 25 mg/dL (8-21)
[2023-07-26 07:42] LABS: ALANINE AMINOTRANSFERASE 25 U/L (12-78); ALBUMIN 3.7 g/dL (3.4-4.8); ASPARTATE AMINOTRANSFERASE 18 U/L (10-37); BILIRUBIN,DIRECT 0.2 mg/dL (0.0-0.3); LIPASE 76 U/L (16-77); TOTAL BILIRUBIN 0.8 mg/dL (0.0-1.0); TOTAL PROTEIN, SERUM 7.5 g/dL (6.4-8.3)
[2023-07-26 08:02] LABS: BILIRUBIN,URINE NEGATIVE (NEGATIVE); BLOOD, URINE NEGATIVE (NEGATIVE); CLARITY/URINE CLEAR (CLEAR); COLOR,URINE YELLOW (YELLOW); GLUCOSE,URINE 3+ (NEGATIVE); KETONES,URINE NEGATIVE (NEGATIVE); LEUKOCYTE ESTERASE ,URINE NEGATIVE (NEGATIVE); NITRITE, URINE NEGATIVE (NEGATIVE); PROTEIN URINE NEGATIVE (NEGATIVE); UROBILINOGEN,URINE 0.2 (0.2-1.0)
[2023-07-26 10:01] VITALS: BP_SYST 179; PULSE 74; RESP 18; TEMP 98.4; O2SAT 94
== END 2023-07-26 09:45 | disposition home or self-care (01) ==
LOC: SED 05:02
DX: R10.9 Unspecified abdominal pain (principal); M54.50 Low back pain, unspecified; E11.9 Type 2 diabetes mellitus without complications; R51.9 Headache, unspecified; I10 Essential (primary) hypertension; E78.5 Hyperlipidemia, unspecified; Z79.899 Other long term (current) drug therapy
CPT/HCPCS: 99285; 70450; 96374; 80076; 80048; 81001; 83690; 85025; 85610; 36415; 76376; 74176; 82948; 81003; J2270